=== PATIENT | male | born 1985 | race Caucasian/White ===

== ENCOUNTER 2016-12-13 17:39 | Emergency (ER) | payer BC ==
[~2016-12-13] VITALS: Wt 90.0 kg
[~2016-12-13 17:39] MED LIST: CEPH500C PO; HYDR-3498 PO
[2016-12-13] MEDS ORDERED: CIPR500T4 PO (18:06)
--- NOTE | 2016-12-13 20:48 | ERD ---
ER Documentation Chief Complaint Date/Time DATE: 12/13/16 TIME: 20:45 Chief Complaint MED REFILL FOR POSSIBLE EXPOSURE TO MENINGITIS PATIENT. HPI 31-year-old male patient with no significant past medical history presents to the ED complaining of being exposed to her family friend who is currently being admitted for meningitis. Patient is asymptomatic. Patient is here for 1 dose of ciprofloxacin. Denies any fever, chills, abdominal pain, nausea, vomiting, neck stiffness, headache, neck pain, rashes. ROS All systems reviewed and are negative except as per history of present illness. Medications Home Meds Active Scripts Ciprofloxacin Hcl* (Ciprofloxacin Hcl*) 500 Mg Tablet, 500 MG PO ONCE Y for now for 1 Day, #1 TAB Prov:KAMLESH WETZEL PA-C 12/13/16 Cephalexin* (Cephalexin*) 500 Mg Capsule, 500 MG PO TID for NOTE, #21 CAP 0 Refills Prov:GEORGE MALDONADO PA-C 07/22/15 Hydrocodone Bit-Acetaminophen* ([place]*) 5-325 Mg Tab, 1 TAB PO DAILY Y for PAIN , #7 TAB Prov:GEORGE MALDONADO PA-C 07/22/15 Allergies Allergies: Coded Allergies: No Known Allergy (Unverified , 07/22/15) PMhx/Soc History of Surgery: Yes (R KNEE SX; HERNIA X2) Anesthesia Reaction: No Hx Neurological Disorder: No Hx Respiratory Disorders: No Hx Cardiac Disorders: No Hx Psychiatric Problems: No Hx Miscellaneous Medical Probl: No Hx Alcohol Use: Yes (OCCASSIONAL) Hx Substance Use: No Hx Tobacco Use: No Physical Exam Vitals Vital Signs Date Time Temp Pulse Resp B/P Pulse Ox O2 Delivery O2 Flow Rate FiO2 12/13/16 17:48 98.2 77 20 119/66 98 Physical Exam Const: Spn-pek-iyzsjqpat, well-nourished. In no acute distress. Head: Atraumatic, normocephalic Eyes: Normal Conjunctiva without injection. No purulent discharge. PERRLA. EOMI ENT: Normal external ear. Ear canal without erythema. Tympanic membrane pearly musa without effusion or bulging. Nasal canal clear with normal turbinates. Moist oropharynx without tonsillar exudates. Non-erythematous pharynx. Uvula midline. No drooling. No trismus. Neck: No cervical midline tenderness. Full range of motion. No meningismus. No cervical lymphadenopathy. No JVD. Resp: Clear to auscultation bilaterally. No wheezing, rhonchi, rales, or crackles. No accessory muscle use. No retractions. Cardio: Regular rate and rhythm. No murmurs, rubs or gallops. Abd: Soft, non tender, non distended. Normal bowel sounds. No palpable masses. No rebound tenderness. No guarding. Negative McBurney's Point. Negative Knutson's Sign. Skin: Normal skin turgor. No petechiae or rashes Back: No midline tenderness. No CVA tenderness. Ext: No cyanosis, or edema. Distal pulses intact bilaterally. Neur: Awake and alert. Normal gait. Normal coordination. Cranial Nerves II- VII intact. Normal finger to nose. Muscle strength 5/5. Sensation intact. Psych: Normal Mood and Affect Procedures/MDM This is a 31-year-old male patient with no significant past medical history who is here for 1 dose of ciprofloxacin for prophylactic coverage for exposure to meningitis. Patient is afebrile, asymptomatic and well-appearing. Patient is appropriate for outpatient management. Patient will a prescription for 1 dose of 500 mg ciprofloxacin. Low suspicion for meningitis, acute neurological deficits, mass-effect, pneumonia, acute atypical MD, or other emergent conditions. Patient was strictly instructed to return to the ED for any fever, neck pain, neck stiffness, headache, weakness. Discharge medications: Ciprofloxacin Follow up with primary care physician in 1-2 days. Instructed patient to return to the ED sooner for any worsening symptoms. Patient's questions were answered. Patient understood and agreed with discharge plan. Patient discharged stable. Departure Diagnosis: Primary Impression: Exposure to meningitis Condition: Stable Patient Instructions: Taking Medication Safely, Meningitis Referrals: [facility] YOU HAVE RECEIVED A MEDICAL SCREENING EXAM AND THE RESULTS INDICATE THAT YOU DO NOT HAVE A CONDITION THAT REQUIRES URGENT TREATMENT IN THE EMERGENCY DEPARTMENT. FURTHER EVALUATION AND TREATMENT OF YOUR CONDITION CAN WAIT UNTIL YOU ARE SEEN IN YOUR DOCTORS OFFICE WITHIN THE NEXT 1-2 DAYS. IT IS YOUR RESPONSIBILITY TO MAKE AN APPOINTMENT FOR FOLOW-UP CARE. IF YOU HAVE A PRIMARY DOCTOR --you should call your primary doctor and schedule an appointment IF YOU DO NOT HAVE A PRIMARY DOCTOR YOU CAN CALL OUR PHYSICIAN REFERRAL HOTLINE AT IF YOU CAN NOT AFFORD TO SEE A PHYSICIAN YOU CAN CHOSE FROM THE FOLLOWING [facility] [address] [facility] [address] [facility] [address] [facility] [address] [facility] [address] [facility]. [facility] [address] [facility]. [facility] YOU HAVE RECEIVED A MEDICAL SCREENING EXAM AND THE RESULTS INDICATE THAT YOU DO NOT HAVE A CONDITION THAT REQUIRES URGENT TREATMENT IN THE EMERGENCY DEPARTMENT. FURTHER EVALUATION AND TREATMENT OF YOUR CONDITION CAN WAIT UNTIL YOU ARE SEEN IN YOUR DOCTORS OFFICE WITHIN THE NEXT 1-2 DAYS. IT IS YOUR RESPONSIBILITY TO MAKE AN APPOINTMENT FOR FOLOW-UP CARE. IF YOU HAVE A PRIMARY DOCTOR --you should call your primary doctor and schedule and appointment IF YOU DO NOT HAVE A PRIMARY DOCTOR YOU CAN CALL OUR PHYSICIAN REFERRAL HOTLINE AT . IF YOU CAN NOT AFFORD TO SEE A PHYSICIAN YOU CAN CHOSE FROM THE FOLLOWING [facility] [address] [place] [address] [facility] [address] [place] [address] [facility] [address] [place] [address] [facility] URGENT CARE/SPECIALTIES Additional Instructions: Call your primary care doctor TOMORROW for an appointment during the next 2-3 days.See the doctor sooner or return here if your condition worsens before your appointment time. KAMLESH WETZEL PA-C Dec 13, 2016 20:48
== END 2016-12-13 18:07 | disposition home or self-care (01) ==
LOC: E/R 17:39
DX: Z20.811 Contact with and (suspected) exposure to meningococcus (principal)
CPT/HCPCS: 99283

== ENCOUNTER 2017-11-06 12:26 | Emergency (ER) | END 2017-11-06 14:14 | disposition left against medical advice (07) ==